=== PATIENT | male | born 1960 | race Hispanic/Latino ===

== ENCOUNTER 2017-07-21 19:00 | Emergency (ER) | payer OTHER, MEDICARE | END 2017-07-21 22:17 | disposition home or self-care (01) | LOC: EDH 19:00 | DX: S81.812A Laceration without foreign body, left lower leg, initial encounter (principal); Z87.891 Personal history of nicotine dependence; Z88.8 Allergy status to other drugs, medicaments and biological substances; W45.8XXA Other foreign body or object entering through skin, initial encounter; Y93.89 Activity, other specified; Y92.89 Other specified places as the place of occurrence of the external cause; Y99.8 Other external cause status ==

== ENCOUNTER 2018-11-03 01:46 | Observation (INO) | payer OTHER, MEDICARE ==
[~2018-11-03] VITALS: Ht 185.4 cm; Wt 225.4 kg
[~2018-11-03 01:46] MED LIST: ASPI-1005 PO; LISI-617 PO; METO25 PO
[2018-11-03 02:30] LABS: APPEARANCE,URINE SL CLOUDY (CLEAR); BASOPHILS % (AUTO) 0.4 % (0.0-5.0); BILIRUBIN,URINE NEGATIVE (NEGATIVE); COLOR,URINE YELLOW (YELLOW); EOSINOPHILS % (AUTO) 0.4 % (0.0-8.0); GLUCOSE, URINE (UA) NEGATIVE (NEGATIVE); HEMATOCRIT 41.2 % (42-54); KETONES,URINE NEGATIVE (NEGATIVE); LEUKOCYTE ESTERASE ,URINE LARGE (NEGATIVE); LYMPHOCYTES % (AUTO) 9.1 % (21.0-51.0); MEAN CORPUSCULAR HEMOGLOBIN 27.6 pg (27.0-33.0); MEAN CORPUSCULAR HGB CONC 33.5 g/dL (32.0-36.0); MEAN CORPUSCULAR VOLUME 82.4 fL (79-99); MONOCYTES % (AUTO) 9.8 % (3.0-13.0); NEUTROPHILS % (AUTO) 80.3 % (40.0-77.0); NITRATE,URINE NEGATIVE (NEGATIVE); OCCULT BLOOD,URINE MODERATE (NEGATIVE); PLATELET COUNT (AUTO) 206 K/uL (130-400); PROTEIN,URINE 30 mg/dL (NEGATIVE); RED CELL DISTRIBUTION WIDTH 15.4 % (11.0-15.5); WHITE BLOOD COUNT (AUTO) 10.8 K/uL (4.8-10.8)
[2018-11-03 02:31] LABS: CARBON DIOXIDE 28 mmol/L (21-32); CHLORIDE 99 mmol/L (101-111); CREATININE 1.5 mg/dL (0.5-1.5); GLOMERULAR FILTR. RATE CALC 51 mL/min (>60); GLUCOSE,RANDOM 152 mg/dL (70-105); SODIUM SERUM 134 mmol/L (136-145); UREA NITROGEN, BLOOD 25 mg/dL (7-18)
[2018-11-03 02:42] LABS: ALANINE AMINOTRANSFERASE 16 U/L (12-78); ALBUMIN 2.7 g/dL (3.5-5.0); ASPARTATE AMINOTRANSFERASE 20 U/L (10-37); BILIRUBIN,TOTAL 0.5 mg/dL (0.2-1.0); CREATINE KINASE, TOTAL 234 U/L (21-232); MYOGLOBIN 143 ng/mL (10-92); TOTAL PROTEIN, SERUM 7.7 g/dL (6.0-8.3); TROPONIN I < 0.04 ng/mL (0.00-0.06)
[2018-11-03 02:42] LABS: INR 1.03 (0.85-1.15); PARTIAL THROMBOPLASTIN TIME 31.2 SEC (26.3-35.5); PROTHROMBIN TIME 10.8 SEC (9.6-11.6)
[2018-11-03 03:35] LABS: BACTERIA,URINE Moderate /HPF (None Seen); WBC,URINE >100 /HPF (0-1)
[2018-11-03 03:36] LABS: SQUAMOUS EPITHELIAL CELL,UR 0-2 /HPF (0-2)
[2018-11-03] MEDS ORDERED: CEFTRIAXONE SODIUM 1 GM ONE (03:57)
[2018-11-03] MEDS ORDERED: SODIUM CHLORIDE 0.9% 50 ML IV ONE ×2 (03:58→05:57)
[2018-11-03] MEDS ORDERED: MEROPENEM 1 GM VIAL ONE ×2 (05:57→13:51)
[2018-11-03] MEDS: SODIUM CHLORIDE 0.9% 1000ML 1,000 ML IV SCH ×3 (06:30→23:24)
[2018-11-03] MEDS ORDERED: SODIUM CHLORIDE 0.9% 1000ML 1,000 ML IV ONE (06:57)
[2018-11-03] MEDS: MEROPENEM 1 GM VIAL IVP SCH ×3 (07:00→22:56)
[2018-11-03] MEDS ORDERED: ENOXAPARIN SODIUM 30 MG/0.3 ML SQ ONE (07:33)
[2018-11-03] MEDS ORDERED: FAMOTIDINE 20MG TAB 20 MG TAB ONE (07:33)
[2018-11-03 08:50] LABS: BASOPHILS % (AUTO) 0.2 % (0.0-5.0); EOSINOPHILS % (AUTO) 0.3 % (0.0-8.0); HEMATOCRIT 41.6 % (42-54); LYMPHOCYTES % (AUTO) 8.4 % (21.0-51.0); MEAN CORPUSCULAR HEMOGLOBIN 26.4 pg (27.0-33.0); MEAN CORPUSCULAR VOLUME 82.5 fL (79-99); MONOCYTES % (AUTO) 9.7 % (3.0-13.0); NEUTROPHILS % (AUTO) 81.4 % (40.0-77.0); PLATELET COUNT (AUTO) 214 K/uL (130-400); RED BLOOD CELL COUNT(AUTO) 5.04 MIL/uL (4.50-6.20); RED CELL DISTRIBUTION WIDTH 15.4 % (11.0-15.5); WHITE BLOOD COUNT (AUTO) 12.3 K/uL (4.8-10.8)
[2018-11-03] MEDS: ENOXAPARIN SODIUM 30 MG/0.3 ML SQ SCH (09:00)
[2018-11-03] MEDS: FAMOTIDINE 20MG TAB 20 MG TAB PO SCH ×2 (09:00→20:50)
[2018-11-03 09:01] LABS: CREATININE 1.3 mg/dL (0.5-1.5); POTASSIUM 3.8 mmol/L (3.5-5.1)
[2018-11-03 09:05] LABS: ALBUMIN 2.5 g/dL (3.5-5.0); BILIRUBIN,TOTAL 0.5 mg/dL (0.2-1.0); TOTAL PROTEIN, SERUM 7.4 g/dL (6.0-8.3)
[2018-11-03] MEDS ORDERED: LACTULOSE 20 GM/30 ML UDCUP ONE (13:52)
[2018-11-03] MEDS ORDERED: SODIUM CHLORIDE 0.9% 100 ML IV ONE (13:52)
[2018-11-03 15:00] VITALS: BP 144/75
--- NOTE | 2018-11-03 15:30 | NUR ---
ER. ADMIT TO ROOM 330.AAO X 3. NS INFUSING AT 100 ML/HR VIA 20G RT. HAND. SOMEWHAT SOB BUT IS REFUSING O2 AT THIS TIME. STATES HAS NO 02 AT HOME BUT DOES HAVE A C-PAP AT HOME WHICH HE USES AT HS.
[2018-11-03] MEDS ORDERED: ACETAMINOPHEN 325 MG TAB PO PRN (16:45)
--- NOTE | 2018-11-03 18:00 | NUR ---
ADM.DATABASE COLLECTED BUT PT. MAKES A JOKE OF ALMOST ALL QUESTIONS ASKED.PLUS HAVING TO MAKE TRIPS TO BR FREQUENTLY AND MOVES VERY SLOW DUE TO WT SWELLING TO LOWER EXTREMITIES.
[2018-11-03 20:00] VITALS: BP 138/71
[2018-11-03] MEDS: METOPROLOL TARTRATE 25 MG TAB PO SCH (20:50)
--- NOTE | 2018-11-03 20:50 | NUR ---
MEDS PT CLAIMS OF FEELING SWEATY. EXPLAINED THAT IT IS HIS TEMPERATURE COMING DOWN TO NORMAL HE WAS HAVING FEVER DURING THE DAY SHIFT. DUE MEDS ADMINISTERED, TOLERATED WELL. PCP ASKED TO ASSIST PT FOR A BATH OR SHOWER BUT PT DECLINED AT THIS TIME. Addendum: 11/04/18 at 0227 by TY CARPENTER RN RN Amended: Links added.
[2018-11-04] VITALS: BP 126/69
--- NOTE | 2018-11-04 02:00 | NUR ---
ROUNDS PT RESTING WELL, FAIRLY ASLEEP WITH HOME CPAP ON. KEPT UNDISTURBED FOR NOW. CALL LIGHT WITHIN REACH. WILL MONITOR PT.
[2018-11-04] MEDS: SODIUM CHLORIDE 0.9% 1000ML 1,000 ML IV SCH ×3 (02:07→21:41)
[2018-11-04 04:00] VITALS: BP 123/71
--- NOTE | 2018-11-04 05:06 | NUR ---
ROUNDS PT STILL FAIRLY ASLEEP. NO DISTRESS NOTED. KEPT RESTED AND COMFORTABLE. CALL LIGHT WITHIN REACH. FOR MORE CARE.
[2018-11-04] MEDS: MEROPENEM 1 GM VIAL IVP SCH ×3 (06:01→23:02)
[2018-11-04 08:00] VITALS: BP 123/66
--- NOTE | 2018-11-04 08:00 | NUR ---
am shift assessment.
[2018-11-04] MEDS: METOPROLOL TARTRATE 25 MG TAB PO SCH ×2 (09:27→20:53)
[2018-11-04] MEDS: ASPIRIN 81MG TAB.CHEW PO SCH (09:27)
[2018-11-04] MEDS: FAMOTIDINE 20MG TAB 20 MG TAB PO SCH ×2 (09:27→20:53)
[2018-11-04] MEDS: ENOXAPARIN SODIUM 30 MG/0.3 ML SQ SCH (09:28)
[2018-11-04 11:00] VITALS: BP 138/67
--- NOTE | 2018-11-04 15:20 | NUR ---
DCP CM met with pt discussed dc plans. Pt is independent prior to admission, lives at home with daughter. Denies any equipments/services. Pt feels safe to go back home, still drives, daughter able to assist with transportation and needs as necessary. DC plan to home once stable. CM to cont to follow up. Addendum: 11/04/18 at 1521 by ALLI CUMMINS LVN CM Amended: Links added.
[2018-11-04 16:00] VITALS: BP 116/65
--- NOTE | 2018-11-04 18:34 | NUR ---
new iv site accessed on lt hand.
[2018-11-04 20:00] VITALS: BP 105/51
--- NOTE | 2018-11-04 20:55 | NUR ---
MEDS SHIFT ASSESSMENT DONE, PLEASE REFER TO CHART. DUE MEDS ADMINISTERED, TOLERATED WELL. NO COMPLAINTS VERBALIZED. RE-POSITIONED COMFORTABLY IN BED. CALL LIGHT WITHIN REACH. WILL MONITOR PT. Addendum: 11/05/18 at 0007 by TY CARPENTER RN RN Amended: Links added.
[2018-11-05] VITALS: BP 105/42
[2018-11-05] MEDS: SODIUM CHLORIDE 0.9% 1000ML 1,000 ML IV SCH ×2 (01:48→08:30)
--- NOTE | 2018-11-05 01:48 | NUR ---
IVF PT IS AWAKE AND WATCHING ON HIS PHONE. NEW IV BAG HUNG. PT COMPLAINTS OF PAINS ON OLD PIV SITE. WARM PACK APPLIED. PT WANTED A SNACK AND ASK FOR HIS APPLE. NO OTHER CONCERNS VERBALIZED. ENCOURAGED TO GO BACK TO SLEEP AFTER EATING.
[2018-11-05 04:00] VITALS: BP 115/51
[2018-11-05] MEDS: MEROPENEM 1 GM VIAL IVP SCH (05:56)
[2018-11-05 06:51] LABS: HEMATOCRIT 37.6 % (42-54); MEAN CORPUSCULAR HEMOGLOBIN 26.6 pg (27.0-33.0); MEAN CORPUSCULAR HGB CONC 32.3 g/dL (32.0-36.0); MEAN CORPUSCULAR VOLUME 82.3 fL (79-99); PLATELET COUNT (AUTO) 216 K/uL (130-400); RED BLOOD CELL COUNT(AUTO) 4.57 MIL/uL (4.50-6.20); RED CELL DISTRIBUTION WIDTH 15.6 % (11.0-15.5); WHITE BLOOD COUNT (AUTO) 6.3 K/uL (4.8-10.8)
[2018-11-05 07:05] LABS: POTASSIUM 3.8 mmol/L (3.5-5.1)
[2018-11-05 08:00] VITALS: BP 134/71
[2018-11-05] MEDS: ASPIRIN 81MG TAB.CHEW PO SCH (08:59)
[2018-11-05] MEDS: FAMOTIDINE 20MG TAB 20 MG TAB PO SCH (08:59)
[2018-11-05] MEDS: ENOXAPARIN SODIUM 30 MG/0.3 ML SQ SCH (08:59)
[2018-11-05] MEDS: METOPROLOL TARTRATE 25 MG TAB PO SCH (08:59)
[2018-11-05 12:00] VITALS: BP 136/67
[2018-11-05] MEDS ORDERED: MEROPENEM 1 GM VIAL IVP SCH (14:00)
[2018-11-05 16:00] VITALS: BP 131/76
--- NOTE | 2018-11-05 16:00 | NUR ---
CM Note: update dcp CM met with pt discussed rec for IM abx, pt requeste if possible to have it done at home. Informed patient will sent to in [facility] and in [facility], pt agreeable D[place] signed for [facility], [facility], [facility]. Faxed order and clinicals to [facility] spoke to Myrtle for confirmation will check benefit. Faxed script and clinicals to [facility], spoke to Kamron will run benefit and check. Primary nurse aware. CM to cont to follow up
--- NOTE | 2018-11-05 17:02 | NUR ---
CM Note: [facility] approved pending daughter to apple picking supervisor med CM spoke to Kamron demarco/[facility] regarding Invanz 1 GM Daily X 5 days. Pt has approval copay $10, daughter lives in [place] and will be able to apple picking supervisor medicine today. Primary nurse and charge nurse aware. CM to cont to follow up.
--- NOTE | 2018-11-05 17:05 | NUR ---
CM Note: [facility] approval and acceptance Spoke to Myrtle demarco/[employer]. Pt has approval and acceptance. Will see patient tomorrow, will call patient to schedule appointment, aware daughter will garbage pick up worker Invanz 1GM IM daily x 5 days at [facility] pharmacy in [place] and bring to pt's house. Primary nurse aware. CM to cont to follow up.
--- NOTE | 2018-11-05 19:10 | NUR ---
Patient given discharge instruction and verbalized understanding right , iv removed with catheter intact , patient instructed to follow-up with pcp in 1 week and to call for appointment. no questions or concerns at this time. patient left with family for home in his potable wheelchair .
== END 2018-11-05 19:05 | disposition home health service (06) ==
LOC: EDH 01:46 → EDHIP 05:34 → 3AH 15:07
PROVIDERS: ADMIT Internal Medicine; ATTEND Internal Medicine
DX: N39.0 Urinary tract infection, site not specified (principal); B96.20 Unspecified Escherichia coli [E. coli] as the cause of diseases classified elsewhere; E78.5 Hyperlipidemia, unspecified; G47.33 Obstructive sleep apnea (adult) (pediatric); I10 Essential (primary) hypertension; R32 Unspecified urinary incontinence; Z79.899 Other long term (current) drug therapy; Z79.01 Long term (current) use of anticoagulants
CPT/HCPCS: 36415 ×2; 71045; 80048; 80053 ×2; 81001; 82550; 83605; 83874; 84484; 85025 ×2; 85027; 85610; 85730; 87040 ×2; 87077; 87088; 87186; 87804 ×2; 93005; 96372 ×2; 96374; 96376 ×2; 99284; G0378 ×61; J0696; J1650 ×3; J2185 ×8; J7030

== ENCOUNTER → 2024-06-04 | Outpatient (CLI) | payer OTHER, MEDICARE ==
[~2024-06-04] MED LIST changes: -LISI-617 PO; +LISI5TAB21 PO
[2024-06-04 16:10] LABS: BASOPHILS # (AUTO) 0.03 K/uL (0.00-0.20); BASOPHILS % (AUTO) 0.3 % (0.0-5.0); EOSINOPHILS # (AUTO) 0.16 K/uL (0.00-0.70); EOSINOPHILS % (AUTO) 1.6 % (0.0-8.0); HEMATOCRIT 46.3 % (42-54); IMMATURE GRANULOCYTE ABSOLUTE 0.05 K/uL (0-1); LYMPHOCYTES # (AUTO) 1.7 K/uL (1.0-4.8); LYMPHOCYTES % (AUTO) 16.6 % (21.0-51.0); MEAN CORPUSCULAR HEMOGLOBIN 27.2 pg (27.0-33.0); MEAN CORPUSCULAR HGB CONC 29.8 g/dL (32.0-36.0); MEAN CORPUSCULAR VOLUME 91.3 fL (79-99); MONOCYTES # (AUTO) 0.5 K/uL (0.1-1.0); MONOCYTES % (AUTO) 4.9 % (3.0-13.0); NEUTROPHILS # (AUTO) 7.6 K/uL (1.8-7.7); NEUTROPHILS % (AUTO) 76.1 % (40.0-77.0); PLATELET COUNT (AUTO) 191 K/uL (130-400); RED BLOOD CELL COUNT(AUTO) 5.07 MIL/uL (4.50-6.20); RED CELL DISTRIBUTION WIDTH 14.6 % (11.0-15.5)
[2024-06-04 16:21] LABS: CREATININE 0.9 mg/dL (0.5-1.3); POTASSIUM 4.5 mmol/L (3.5-5.1)
[2024-06-04 16:33] LABS: B-TYPE NATRIURETIC PEPTIDE 88 pg/mL (0-100)
== END | disposition home or self-care (01) ==
LOC: LAB 15:26
PROVIDERS: ATTEND Physician Assistant
DX: R09.02 Hypoxemia (principal)
CPT/HCPCS: 36415; 80048; 83880; 85025